=== PATIENT | male | born 1935 | race Caucasian/White ===

== ENCOUNTER 2016-08-17 19:56 | Inpatient (IN) | payer MEDICARE, MEDICAID ==
[~2016-08-17] VITALS: Ht 157.5 cm; Wt 48.0 kg
[~2016-08-17 19:56] MED LIST: AGGRENOX 200/251 CAP OR; ASPIRIN 8181 MG PO; ASPIRIN LOW DOS81 MG PO; ATENOLOL25 MG PO; AUGMENTINES600 PO; CO Q-1050 MG OR; DOCUSATE SODIUM/SENN OR; EC-NAPROSYN500 MG PO; FISH OIL1000 MG PO; FLEXERIL PO; FLONASE NASAL50 MCG; FUROSEMIDE20 MG PO; ISOSORB MONO30 MG OR; ISOSORB MONO30 MG PO; LECITHIN PO; LOSARTAN POT50 MG PO; LOSARTAN POTASS25 MG PO; MULTIVITAM10 PO; MULTIVITAMI1 OR; NIASPAN500 MG OR; NIASPAN500 MG PO; NITROSTAT0.4 MG SL; PEPCID20 MG PO; PLAVIX75 MG PO; PRAVASTATIN20 MG PO; TOPROL XL50 MG OR; TRAMADOL HYDROC50 MG PO; ULTRAM50 M1 PO; VYTORIN1 TA1 OR; ZINC50 M1 OR; ZOSTAVAX IM; [UNRECOGNIZED DRUG - OTHER]
[2016-08-17 21:21] LABS: HEMATOCRIT 39.1 % (39.0-50.0); HEMOGLOBIN 13.1 g/dl (14.0-18.0); IMMATURE GRANULOCYTES 0.6 % (0.0-1.0); MEAN CELL VOLUME 95.4 fL CALC (80.0-100.0); MEAN CORPUSCULAR HGB CONC 33.5 g/L CALC (32.0-36.0); NEUT# 12.17 thou/uL (1.82-7.42); RED BLOOD COUNT 4.1 mill/uL (4.70-6.10); RED CELL DISTRI WIDTH 13.9 % (11.5-15.5)
[2016-08-17 21:36] LABS: ALBUMIN 3.2 g/dL (3.2-5.0); BILIRUBIN, TOTAL 0.9 mg/dL (0.0-1.4); CALCIUM 8.6 mg/dL (8.4-10.2); CREATININE 2.1 mg/dL (0.7-1.3); POTASSIUM 3.9 mmol/l (3.5-5.1); TOTAL PROTEIN 6.6 g/dL (6.3-8.2)
[2016-08-17 21:42] LABS: URINE BILIRUBIN - DIPSTICK NEGATIVE (NEGATIVE); URINE BLOOD DIPSTICK NEGATIVE (NEGATIVE); URINE CLARITY CLEAR; URINE COLOR YELLOW; URINE GLUCOSE - DIPSTICK NEGATIVE (NEGATIVE); URINE KETONE NEGATIVE (NEGATIVE); URINE LEUK ESTERASE NEGATIVE (NEGATIVE); URINE NITRITE - DIPSTICK NEGATIVE (Negative); URINE PROTEIN - DIPSTICK TRACE mg/dL (NEG-TRACE)
[2016-08-17 22:01] LABS: BARBITURATES NEGATIVE (NEGATIVE); COCAINE NEGATIVE (NEGATIVE); METHADONE NEGATIVE (NEGATIVE); OXCYCODONE NEGATIVE (NEGATIVE); TETRAHYDROCANNABIONOL NEGATIVE (NEGATIVE); TRICYLIC ANTIDEPRESSANTS POSITIVE (NEGATIVE)
[2016-08-18 04:10] VITALS: BP 135/59
[2016-08-18 09:54] VITALS: BP 150/81
[2016-08-18 13:13] LABS: HEMATOCRIT 39.1 % (39.0-50.0); HEMOGLOBIN 13.1 g/dl (14.0-18.0); IMMATURE GRANULOCYTES 0.5 % (0.0-1.0); MEAN CELL VOLUME 95.4 fL CALC (80.0-100.0); MEAN CORPUSCULAR HGB CONC 33.5 g/L CALC (32.0-36.0); NEUT# 9.22 thou/uL (1.82-7.42); RED BLOOD COUNT 4.1 mill/uL (4.70-6.10); RED CELL DISTRI WIDTH 13.7 % (11.5-15.5)
[2016-08-18 13:31] LABS: CALCIUM 8.3 mg/dL (8.4-10.2); CREATININE 1.7 mg/dL (0.7-1.3); POTASSIUM 3.4 mmol/l (3.5-5.1)
[2016-08-18 15:09] VITALS: BP 137/61
[2016-08-18 19:00] VITALS: BP 121/57
[2016-08-18 23:29] VITALS: BP 143/59
[2016-08-19 04:20] VITALS: BP 132/53
[2016-08-19 05:06] LABS: HEMATOCRIT 32.3 % (39.0-50.0); HEMOGLOBIN 10.9 g/dl (14.0-18.0); IMMATURE GRANULOCYTES 0.6 % (0.0-1.0); MEAN CELL VOLUME 94.2 fL CALC (80.0-100.0); MEAN CORPUSCULAR HGB 31.8 pG CALC (26.0-32.0); MEAN CORPUSCULAR HGB CONC 33.7 g/L CALC (32.0-36.0); NEUT# 6.89 thou/uL (1.82-7.42); RED BLOOD COUNT 3.43 mill/uL (4.70-6.10); RED CELL DISTRI WIDTH 13.6 % (11.5-15.5)
[2016-08-19 05:36] LABS: ANION GAP 12 (6-22 (CALC)); BUN 39 mg/dL (8-23); BUN/CREATININE RATIO 33 (12-20 (CALC)); CALCIUM 7.6 mg/dL (8.4-10.2); CARBON DIOXIDE 28 mmol/l (22-30); CHLORIDE 109 mmol/l (95-108); CREATININE 1.2 mg/dL (0.7-1.3); GFR 58 ML/MIN (>=60 (CALC)); GFR FOR AFR.AMER. > 60 ML/MIN (>=60 (CALC)); GLUCOSE 98 mg/dL (82-115); POTASSIUM 3.5 mmol/l (3.5-5.1); SODIUM 145 mmol/l (137-146)
[2016-08-19 07:43] VITALS: BP 144/65
[2016-08-19 10:58] VITALS: BP 135/62
[2016-08-19] MEDS ORDERED: FUROSEMIDE20 MG PO (15:13)
== END 2016-08-19 16:11 | disposition home health service (06) | DRG 684 ==
LOC: ENPENDDIS → ED 19:56 → ED-I 08-18 00:40 → MS2 08-18 03:09 → ED 08-18 03:09 → MS2 08-18 03:09
PROVIDERS: Emergency Medicine; ADMIT Internal Medicine; ATTEND Internal Medicine
DX: N17.9 Acute kidney failure, unspecified (principal); E86.0 Dehydration; F03.90 Unspecified dementia, unspecified severity, without behavioral disturbance, psychotic disturbance, mood disturbance, and anxiety; Z95.1 Presence of aortocoronary bypass graft; I10 Essential (primary) hypertension; E78.5 Hyperlipidemia, unspecified; I25.10 Atherosclerotic heart disease of native coronary artery without angina pectoris; Z91.81 History of falling; Z87.891 Personal history of nicotine dependence

== ENCOUNTER 2017-01-31 10:06 | Inpatient (IN) | payer MEDICARE, MEDICAID ==
[~2017-01-31] VITALS: Ht 157.5 cm; Wt 52.6 kg
[2017-01-31 10:56] LABS: HEMATOCRIT 39.1 % (39.0-50.0); HEMOGLOBIN 13.4 g/dl (14.0-18.0); IMMATURE GRANULOCYTES 0.4 % (0.0-1.0); MEAN CELL VOLUME 100.3 fL CALC (80.0-100.0); MEAN CORPUSCULAR HGB 34.4 pG CALC (26.0-32.0); MEAN CORPUSCULAR HGB CONC 34.3 g/L CALC (32.0-36.0); NEUT# 17.23 thou/uL (1.82-7.42); RED BLOOD COUNT 3.9 mill/uL (4.70-6.10); RED CELL DISTRI WIDTH 13.9 % (11.5-15.5)
[2017-01-31 11:15] LABS: ALBUMIN 4.2 g/dL (3.2-5.0); ALKALINE PHOSPHATASE 87 u/l (38-126); ANION GAP 18 (6-22 (CALC)); BILIRUBIN, TOTAL 1.1 mg/dL (0.0-1.4); BUN 38 mg/dL (8-23); BUN/CREATININE RATIO 29 (12-20 (CALC)); CALCIUM 9.4 mg/dL (8.4-10.2); CARBON DIOXIDE 26 mmol/l (22-30); CHLORIDE 98 mmol/l (95-108); CREATININE 1.3 mg/dL (0.7-1.3); GFR 53 ML/MIN (>=60 (CALC)); GFR FOR AFR.AMER. > 60 ML/MIN (>=60 (CALC)); GLUCOSE 93 mg/dL (82-115); POTASSIUM 3.8 mmol/l (3.5-5.1); SGOT/AST 59 u/l (19-48); SGPT/ALT 34 u/l (11-66); SODIUM 138 mmol/l (137-146); TOTAL PROTEIN 7.6 g/dL (6.3-8.2)
[2017-01-31 15:34] LABS: URINE BILIRUBIN - DIPSTICK NEGATIVE (NEGATIVE); URINE BLOOD DIPSTICK NEGATIVE (NEGATIVE); URINE CLARITY CLEAR; URINE COLOR YELLOW; URINE GLUCOSE - DIPSTICK NEGATIVE (NEGATIVE); URINE KETONE NEGATIVE (NEGATIVE); URINE LEUK ESTERASE NEGATIVE (NEGATIVE); URINE NITRITE - DIPSTICK NEGATIVE (Negative); URINE PROTEIN - DIPSTICK NEGATIVE (NEG-TRACE); URINE SPECIFIC GRAVITY 1.015; URINE UROBILINOGEN - DIPSTICK 0.2 E.U./dL (0.2)
[2017-01-31 17:20] VITALS: BP 116/59
[2017-01-31 19:30] VITALS: BP 126/67
[2017-01-31 22:51] LABS: ACT PARTIAL THROMBO TIME 29.6 SECONDS (20.0-32.5); INTERNATIONAL NORMALIZED RATIO 0.9 RATIO (0.7-1.3); PROTHROMBIN TIME 9.9 SECONDS (9.0-12.5)
[2017-01-31 22:55] VITALS: BP 126/67
== END 2017-01-31 23:28 | DRG 315 ==
LOC: ED 10:06 → ED-I 12:37 → ED 13:07 → MS2 13:08
PROVIDERS: Emergency Medicine; ADMIT Internal Medicine; ATTEND Internal Medicine
DX: T82.898A Other specified complication of vascular prosthetic devices, implants and grafts, initial encounter (principal); L03.115 Cellulitis of right lower limb; N17.9 Acute kidney failure, unspecified; F03.90 Unspecified dementia, unspecified severity, without behavioral disturbance, psychotic disturbance, mood disturbance, and anxiety; I25.10 Atherosclerotic heart disease of native coronary artery without angina pectoris; I73.9 Peripheral vascular disease, unspecified; S92.514A Nondisplaced fracture of proximal phalanx of right lesser toe(s), initial encounter for closed fracture; X58.XXXA Exposure to other specified factors, initial encounter; I10 Essential (primary) hypertension; E78.5 Hyperlipidemia, unspecified; F17.210 Nicotine dependence, cigarettes, uncomplicated; Y83.2 Surgical operation with anastomosis, bypass or graft as the cause of abnormal reaction of the patient, or of later complication, without mention of misadventure at the time of the procedure; Z95.1 Presence of aortocoronary bypass graft
CPT/HCPCS: J3370

== ENCOUNTER 2017-02-08 15:33 | Emergency (ER) | payer MEDICARE, MEDICAID ==
[~2017-02-08] VITALS: Ht 157.5 cm; Wt 50.0 kg
[2017-02-08] MEDS ORDERED: BACTRIM DS1 TAB PO ×2 (16:25→17:06)
[2017-02-08 17:20] VITALS: BP 139/64
== END 2017-02-08 17:33 | disposition home or self-care (01) ==
LOC: ED 15:33
DX: L03.115 Cellulitis of right lower limb (principal); S92.911D Unspecified fracture of right toe(s), subsequent encounter for fracture with routine healing; I25.2 Old myocardial infarction; X58.XXXD Exposure to other specified factors, subsequent encounter; Z95.1 Presence of aortocoronary bypass graft; Z95.828 Presence of other vascular implants and grafts

== ENCOUNTER 2017-03-09 14:16 | Emergency (ER) | payer MEDICARE, MEDICAID ==
[~2017-03-09] VITALS: Ht 157.5 cm; Wt 50.0 kg
[~2017-03-09 14:16] MED LIST changes: +BACTRIM DS1 TAB PO
[2017-03-09 14:48] LABS: HEMATOCRIT 37.2 % (39.0-50.0); HEMOGLOBIN 12.4 g/dl (14.0-18.0); IMMATURE GRANULOCYTES 0.3 % (0.0-1.0); MEAN CELL VOLUME 101.9 fL CALC (80.0-100.0); MEAN CORPUSCULAR HGB CONC 33.3 g/L CALC (32.0-36.0); NEUT# 10.01 thou/uL (1.82-7.42); RED BLOOD COUNT 3.65 mill/uL (4.70-6.10); RED CELL DISTRI WIDTH 14.6 % (11.5-15.5)
[2017-03-09 14:49] LABS: URINE BILIRUBIN - DIPSTICK NEGATIVE (NEGATIVE); URINE BLOOD DIPSTICK NEGATIVE (NEGATIVE); URINE CLARITY CLEAR; URINE COLOR YELLOW; URINE GLUCOSE - DIPSTICK NEGATIVE (NEGATIVE); URINE KETONE 15 mg/dL (NEGATIVE); URINE LEUK ESTERASE NEGATIVE (NEGATIVE); URINE NITRITE - DIPSTICK NEGATIVE (Negative); URINE PH 6.5 (4.5-8.0); URINE PROTEIN - DIPSTICK 30 mg/dL (NEG-TRACE); URINE SPECIFIC GRAVITY 1.015
[2017-03-09 14:50] LABS: URINE RBC 0-2 RBC/hpf (0-5); URINE WBC 0-2 WBC/hpf (0-5)
[2017-03-09 14:59] LABS: ALBUMIN 3.8 g/dL (3.2-5.0); ALKALINE PHOSPHATASE 116 u/l (38-126); ANION GAP 20 (6-22 (CALC)); BILIRUBIN, TOTAL 0.9 mg/dL (0.0-1.4); BUN 21 mg/dL (8-23); BUN/CREATININE RATIO 21 (12-20 (CALC)); CALCIUM 9.2 mg/dL (8.4-10.2); CARBON DIOXIDE 22 mmol/l (22-30); CHLORIDE 102 mmol/l (95-108); GFR > 60 ML/MIN (>=60 (CALC)); GFR FOR AFR.AMER. > 60 ML/MIN (>=60 (CALC)); GLUCOSE 113 mg/dL (82-115); LIPASE 168 u/l (23-300); POTASSIUM 4.2 mmol/l (3.5-5.1); SGOT/AST 26 u/l (19-48); SGPT/ALT 23 u/l (11-66); SODIUM 140 mmol/l (137-146); TOTAL PROTEIN 6.9 g/dL (6.3-8.2)
[2017-03-09] MEDS ORDERED: NEXIUM40 M1 PO (16:14)
[2017-03-09] MEDS ORDERED: RESTORIL15 MG PO (16:15)
[2017-03-09] MEDS ORDERED: FUROSEMIDE40 MG PO (16:16)
[2017-03-09] MEDS ORDERED: BL ASPIRIN325 MG PO (16:16)
[2017-03-09] MEDS ORDERED: LOPRESSOR50 M1 PO (16:17)
[2017-03-09] MEDS ORDERED: SPIRONOLACT25 MG PO (16:17)
[2017-03-09] MEDS ORDERED: PRAVASTATIN SOD20 MG PO (16:18)
[2017-03-09 16:24] VITALS: BP 135/76
== END 2017-03-09 16:50 | disposition short-term general hospital (02) ==
LOC: ED 14:16
PROVIDERS: Family Medicine
PROC: 0T9B70Z Drainage of Bladder with Drainage Device, Via Natural or Artificial Opening (ICD-10-PCS; principal; 2017-03-09)
PROC: 05HM33Z Insertion of Infusion Device into Right Internal Jugular Vein, Percutaneous Approach (ICD-10-PCS; 2017-03-09)
DX: J18.9 Pneumonia, unspecified organism (principal); Y95 Nosocomial condition; R50.9 Fever, unspecified; I62.00 Nontraumatic subdural hemorrhage, unspecified
CPT/HCPCS: J1953